=== PATIENT | male | born 1970 | race Caucasian/White ===

== ENCOUNTER 2023-09-20 23:04 | Inpatient (IN) | payer BC ==
[~2023-09-20] VITALS: Ht 182.9 cm; Wt 88.5 kg
[2023-09-20 23:04] VITALS: BP 168/95; PULSE 86; RESP 19; TEMP 98; O2SAT 96
[2023-09-20] MEDS: MORPHINE SULFATE 2 MG/ML SYR IVP STA (23:57)
[2023-09-21] MEDS: ONDANSETRON 4 MG/2 ML VIAL IVP ONE
[2023-09-21 00:23] LABS: BASOPHILS # (AUTO) 0.1 K/uL (0.00-0.22); BASOPHILS % (AUTO) 0.6 % (0.0-2.0); EOSINOPHILS # (AUTO) 0.1 K/uL (0-0.4); EOSINOPHILS % (AUTO) 0.9 % (0.0-4.0); HEMATOCRIT 41.5 % (36-52); HEMOGLOBIN 14.1 g/dL (12.0-18.0); LYMPHOCYTES # (AUTO) 0.9 K/uL (2.0-11.5); LYMPHOCYTES % (AUTO) 9.3 % (20.5-51.1); MEAN CORPUSCULAR HEMOGLOBIN 33 pg (27-31); MEAN CORPUSCULAR HGB CONC 34 g/dL (33-37); MONOCYTES # (AUTO) 0.6 K/uL (0.8-1.0); MONOCYTES % (AUTO) 6.2 % (1.7-9.3); NEUTROPHILS # (AUTO) 7.6 K/uL (1.8-7.7); PLATELET COUNT (AUTO) 204 K/uL (140-450); RED BLOOD CELL COUNT(AUTO) 4.32 MIL/uL (4.20-6.10); RED CELL DISTRIBUTION WIDTH 12.5 % (11.6-13.7); WHITE BLOOD COUNT (AUTO) 9.2 K/uL (4.8-10.8)
[2023-09-21 00:48] LABS: ALANINE AMINOTRANSFERASE 21 U/L (12-78); ALKALINE PHOSPHATASE 67 U/L (50-136); ASPARTATE AMINOTRANSFERASE 14 U/L (15-37); CALCIUM 8.5 mg/dL (8.5-10.1); CARBON DIOXIDE 29.5 mmol/L (21-32); CHLORIDE 99 mmol/L (98-107); CREATININE 0.9 mg/dL (0.6-1.3); GFR ARICAN-AMERICAN 114 mL/min (>90); GFR NON ARICAN-AMERICAN 94 mL/min (>90); GLUCOSE 115 mg/dL (74-106); POTASSIUM 3.5 mmol/L (3.5-5.1); SODIUM SERUM 136 mmol/L (136-145); TOTAL BILIRUBIN 0.7 mg/dL (0.0-1.0); TOTAL PROTEIN, SERUM 7.8 g/dL (6.4-8.2); UREA NITROGEN, BLOOD 19 mg/dL (7-18)
[2023-09-21 03:31] LABS: INR 1.13 (0.8-1.2); PARTIAL THROMBOPLASTIN TIME 29.4 secs (22-35.6); PROTHROMBIN TIME 11.8 secs (10.8-13.4)
[2023-09-21] MEDS ORDERED: AZITHROMYCIN 500 MG INJ VIAL IV ONE (03:37)
[2023-09-21] MEDS ORDERED: cefTRIAXone 1,000 MG VIAL ONE (03:37)
[2023-09-21] MEDS: AZITHROMYCIN 500 MG in DEXTROSE 5% 250 ML IV ONE (03:54)
[2023-09-21] MEDS ORDERED: HEPARIN PER PHARMACY MC PRN (04:05)
[2023-09-21] MEDS: PANTOPRAZOLE 40 MG INJ VIAL IVP ONE (04:23)
[2023-09-21] MEDS: hePARIN / DEXT 5% PREMIX 250 ML IV SCH (05:16)
[2023-09-21 07:10] LABS: BASOPHILS % (AUTO) 0.4 % (0.0-2.0); EOSINOPHILS # (AUTO) 0.1 K/uL (0-0.4); HEMOGLOBIN 13.7 g/dL (12.0-18.0); LYMPHOCYTES # (AUTO) 1.5 K/uL (2.0-11.5); MEAN CORPUSCULAR HEMOGLOBIN 33 pg (27-31); MEAN CORPUSCULAR HGB CONC 34 g/dL (33-37); MEAN CORPUSCULAR VOLUME 95.3 fL (80-94); MONOCYTES # (AUTO) 0.6 K/uL (0.8-1.0); MONOCYTES % (AUTO) 6.3 % (1.7-9.3); NEUTROPHILS # (AUTO) 7.2 K/uL (1.8-7.7); NEUTROPHILS % (AUTO) 76.3 % (42.2-75.2); PLATELET COUNT (AUTO) 199 K/uL (140-450); RED CELL DISTRIBUTION WIDTH 12.4 % (11.6-13.7); WHITE BLOOD COUNT (AUTO) 9.5 K/uL (4.8-10.8)
[2023-09-21 07:29] LABS: ALBUMIN 3.6 g/dL (3.4-5.0); ANION GAP 12.8 (8-16); CALCIUM 8.4 mg/dL (8.5-10.1); CREATININE 0.9 mg/dL (0.6-1.3); POTASSIUM 3.8 mmol/L (3.5-5.1); TOTAL BILIRUBIN 0.7 mg/dL (0.0-1.0); TOTAL PROTEIN, SERUM 7.2 g/dL (6.4-8.2)
[2023-09-21] MEDS ORDERED: MORPHINE SULFATE 2 MG/ML SYR ONE (07:49)
[2023-09-21 08:40] VITALS: BP 121/77; PULSE 18; PULSE 58; PULSE 63; RESP 18; TEMP 98.2; O2SAT 97
[2023-09-21] MEDS ORDERED: ONDANSETRON 4 MG/2 ML VIAL IVP PRN (09:00)
[2023-09-21] MEDS ORDERED: ZOLPIDEM 5 MG TAB PO PRN (09:00)
[2023-09-21] MEDS: DOCUSATE SODIUM 100 MG GELCAP PO SCH (09:00)
[2023-09-21] MEDS ORDERED: LORazepam 1 MG TAB PO PRN (09:00)
[2023-09-21] MEDS: MORPHINE SULFATE 2 MG/ML SYR IVP PRN (09:06)
[2023-09-21 12:00] VITALS: BP 128/76; PULSE 59; RESP 18; TEMP 98; O2SAT 99
[2023-09-21 16:00] VITALS: BP 126/72; PULSE 56; PULSE 59; RESP 18; TEMP 98.3; O2SAT 98
[2023-09-21] MEDS: HYDROcodone/APAP 5/325 MG 1 TAB TAB PO PRN (18:03)
[2023-09-21 20:00] VITALS: BP 118/69; PULSE 18; PULSE 56; PULSE 59; RESP 18; TEMP 97.8; O2SAT 96
[2023-09-22] VITALS (7 sets, daily range): BP systolic 120–134; BP diastolic 72–83; PULSE 50–76; RESP 18–19; TEMP 96.7–97.7; O2SAT 97–99
[2023-09-22 03:07] LABS: BASOPHILS # (AUTO) 0.1 K/uL (0.00-0.22); BASOPHILS % (AUTO) 0.7 % (0.0-2.0); EOSINOPHILS # (AUTO) 0.2 K/uL (0-0.4); EOSINOPHILS % (AUTO) 1.9 % (0.0-4.0); HEMATOCRIT 40.3 % (36-52); HEMOGLOBIN 13.6 g/dL (12.0-18.0); LYMPHOCYTES # (AUTO) 1.7 K/uL (2.0-11.5); LYMPHOCYTES % (AUTO) 20.9 % (20.5-51.1); MEAN CORPUSCULAR HEMOGLOBIN 32 pg (27-31); MEAN CORPUSCULAR HGB CONC 34 g/dL (33-37); MEAN CORPUSCULAR VOLUME 95.7 fL (80-94); MONOCYTES # (AUTO) 0.5 K/uL (0.8-1.0); MONOCYTES % (AUTO) 6.6 % (1.7-9.3); NEUTROPHILS # (AUTO) 5.8 K/uL (1.8-7.7); NEUTROPHILS % (AUTO) 69.9 % (42.2-75.2); PLATELET COUNT (AUTO) 192 K/uL (140-450); RED BLOOD CELL COUNT(AUTO) 4.22 MIL/uL (4.20-6.10); RED CELL DISTRIBUTION WIDTH 12.5 % (11.6-13.7); WHITE BLOOD COUNT (AUTO) 8.3 K/uL (4.8-10.8)
[2023-09-22 03:32] LABS: ALBUMIN 3.3 g/dL (3.4-5.0); ANION GAP 11.9 (8-16); CALCIUM 8.5 mg/dL (8.5-10.1); CARBON DIOXIDE 28.7 mmol/L (21-32); CREATININE 0.9 mg/dL (0.6-1.3); POTASSIUM 3.6 mmol/L (3.5-5.1); TOTAL BILIRUBIN 0.6 mg/dL (0.0-1.0); TOTAL PROTEIN, SERUM 7.1 g/dL (6.4-8.2)
[2023-09-22] MEDS ORDERED: APIX5TAB PO (13:49)
[2023-09-22] MEDS ORDERED: IBUP-1842 PO (13:55)
== END 2023-09-22 16:00 | disposition home or self-care (01) | DRG 176 ==
LOC: MED 23:04 → MTU 09-21 04:07
PROVIDERS: ADMIT Student in an Organized Health Care Education/Training Program; ATTEND Student in an Organized Health Care Education/Training Program
DX: I26.99 Other pulmonary embolism without acute cor pulmonale (principal); S22.20XA Unspecified fracture of sternum, initial encounter for closed fracture; S82.201A Unspecified fracture of shaft of right tibia, initial encounter for closed fracture; F07.81 Postconcussional syndrome; V89.2XXA Person injured in unspecified motor-vehicle accident, traffic, initial encounter; Y93.89 Activity, other specified; Y92.89 Other specified places as the place of occurrence of the external cause; Y99.8 Other external cause status
CPT/HCPCS: 36415; 71275; 80053; 84484; 85025; 85610; 85730; 87081; 93005; 93970; 96374; 96375; 99291; C9113; J0456; J0696; J1644; J2270; J2405; Q0092; Q9967